=== PATIENT | male | born 1935 | race Asian ===

== ENCOUNTER → 2020-04-13 | Outpatient (CLI) | payer MEDICARE, OTHER ==
[~2020-04-13] MED LIST: ASPI-825 PO; LISI40TA4 PO; SIMV-46 PO; TERA5CAP4 PO
== END | disposition home or self-care (01) ==
LOC: RADPV 08:43
PROVIDERS: ATTEND Legal Medicine
DX: M47.812 Spondylosis without myelopathy or radiculopathy, cervical region (principal); M19.031 Primary osteoarthritis, right wrist; M19.041 Primary osteoarthritis, right hand; M19.021 Primary osteoarthritis, right elbow
CPT/HCPCS: 72040; 73080-TC; 73110-TC; 73130-TC

== ENCOUNTER 2020-06-18 18:31 | Emergency (ER) | payer MEDICARE, OTHER ==
[~2020-06-18] VITALS: Ht 165.1 cm; Wt 75.9 kg
[2020-06-18 18:55] VITALS: BP 112/75
== END 2020-06-18 20:25 | disposition left against medical advice (07) ==
LOC: EMS 18:33
DX: Z76.0 Encounter for issue of repeat prescription (principal); Z53.21 Procedure and treatment not carried out due to patient leaving prior to being seen by health care provider

== ENCOUNTER 2023-12-11 22:46 | Emergency (ER) | payer MEDICARE, OTHER ==
[~2023-12-11] VITALS: Ht 165.1 cm; Wt 75.5 kg
[~2023-12-11 22:46] MED LIST changes: -LISI40TA4 PO; +LISI40TA9 PO
[2023-12-11 22:57] VITALS: TEMP 98
[2023-12-12 00:30] VITALS: BP 129/71; PULSE 77; RESP 18
== END 2023-12-12 01:27 | disposition left against medical advice (07) ==
LOC: EMS 22:46
DX: M79.602 Pain in left arm (principal); Z53.21 Procedure and treatment not carried out due to patient leaving prior to being seen by health care provider
CPT/HCPCS: 99281; Z7502

== ENCOUNTER 2025-04-30 16:17 | Emergency (ER) | payer MEDICARE, OTHER ==
[~2025-04-30] VITALS: Ht 165.1 cm; Wt 78.8 kg
[~2025-04-30 16:17] MED LIST changes: +LISI-1024 PO; -LISI40TA9 PO
[2025-04-30 16:34] VITALS: TEMP 98.8
[2025-04-30 16:52] LABS: PLATELET COUNT (AUTO) 192 K/uL (150-450); RED BLOOD CELL COUNT(AUTO) 3.65 MIL/uL (4.50-5.90); RED CELL DISTRIBUTION WIDTH 13.1 % (11.5-14.5); WHITE BLOOD COUNT (AUTO) 4.6 K/uL (4.5-11.0)
[2025-04-30 16:57] LABS: CALCIUM, TOTAL 8.0 mg/dL (8.8-10.5); CREATININE 1.21 mg/dL (0.60-1.30); GLOMERULAR FILTR. RATE CALC 57 mL/min (>60); GLUCOSE,RANDOM 118 mg/dL (70-110); SODIUM SERUM 139 mmol/L (136-145); UREA NITROGEN, BLOOD 10 mg/dL (7-18)
[2025-04-30 17:02] LABS: ASPARTATE AMINOTRANSFERASE 20.0 U/L (15-37); CREATINE KINASE, TOTAL ONLY 67.0 U/L (39-308); TOTAL PROTEIN, SERUM 6.9 g/dL (6.4-8.2)
[2025-04-30 17:05] LABS: TROPONIN I-HIGH SENSITIVITY 6 ng/L (<76)
[2025-04-30 17:39] LABS: APPEARANCE,URINE CLEAR (CLEAR); GLUCOSE, URINE (UA) NEGATIVE (NEGATIVE); LEUKOCYTE ESTERASE ,URINE NEGATIVE (NEGATIVE); NITRATE,URINE NEGATIVE (NEGATIVE); OCCULT BLOOD,URINE NEGATIVE (NEGATIVE); SPECIFIC GRAVITIY, URINE 1.016 (1.003-1.030)
[2025-04-30 18:53] VITALS: BP 187/83; PULSE 77; RESP 16; O2SAT 98
== END 2025-04-30 19:34 | disposition left against medical advice (07) ==
LOC: EMS 16:17
DX: R07.2 Precordial pain (principal); E11.9 Type 2 diabetes mellitus without complications; I10 Essential (primary) hypertension; I25.10 Atherosclerotic heart disease of native coronary artery without angina pectoris; Z79.82 Long term (current) use of aspirin; Z98.890 Other specified postprocedural states; Z79.899 Other long term (current) drug therapy
CPT/HCPCS: 99285; 96374; 71045; 80048; 80076; 81003; 82550; 83880; 84484; 85025; 85610; 85730; 36415; 93005; J0360

== ENCOUNTER 2025-06-08 17:39 | Emergency (ER) | payer MEDICARE, OTHER ==
[~2025-06-08] VITALS: Ht 165.1 cm; Wt 72.0 kg
[2025-06-08 18:16] LABS: GLUCOMETER DEV NAME(LOC) ER.7; GLUCOSE,POINT OF CARE 96 MG/DL (70-110)
[2025-06-08 18:38] VITALS: TEMP 97.9; O2SAT 98
[2025-06-08] MEDS: IBUPROFEN 400 MG TABLET PO ONE (19:01)
[2025-06-08] MEDS: ACETAMINOPHEN 500 MG TABLET PO ONE (19:01)
[2025-06-08] MEDS: METOCLOPRAMIDE HCL 10 MG TABLET PO ONE (19:02)
[2025-06-08 20:16] VITALS: BP 152/77; PULSE 75; RESP 18; O2SAT 98
== END 2025-06-08 20:17 | disposition home or self-care (01) ==
LOC: EMS 17:39
DX: R51.9 Headache, unspecified (principal); E11.9 Type 2 diabetes mellitus without complications; I10 Essential (primary) hypertension; I25.10 Atherosclerotic heart disease of native coronary artery without angina pectoris; Z98.890 Other specified postprocedural states; Z79.82 Long term (current) use of aspirin; Z79.899 Other long term (current) drug therapy
CPT/HCPCS: 82962; 99284